=== PATIENT | male | born 1955 | race Caucasian/White ===

== ENCOUNTER 2021-06-30 21:52 | Inpatient (IN) | payer BC ==
[2021-06-29 20:58] VITALS: BP 92/56
[~2021-06-30] VITALS: Ht 172.7 cm; Wt 80.7 kg
[2021-06-30 20:13] VITALS: BP_SYST 142; BP_SYST 143; BP_DIAS 79; BP_DIAS 87
[2021-06-30] MEDS ORDERED: PANT40TA51 PO (22:38)
[2021-06-30] MEDS ORDERED: LACT1CAP56 MT (22:42)
[2021-06-30] MEDS ORDERED: ONDANSETRON HCL 4MG/2ML INJ IV PRN (22:45)
[2021-06-30] MEDS ORDERED: ZOLPIDEM TARTRATE 5MG TABLET PO PRN (22:45)
[2021-06-30] MEDS ORDERED: CLONIDINE 0.1MG TABLET PO PRN (22:45)
[2021-06-30] MEDS ORDERED: ACETAMINOPHEN 325MG TABLET PO PRN (22:45)
[2021-07-01] VITALS: BP 99/61
[2021-07-01] MEDS: MORPHINE SULFATE 2 MG/ML CPJ (NOT FOR IM USE) IV PRN ×2 (00:03→12:38)
[2021-07-01] MEDS: DEXT 5%/0.9% NACL 1,000 ML IV SCH ×2 (00:27→12:28)
[2021-07-01 01:58] LABS: CHLORIDE 109 mEq/L (98-107)
[2021-07-01 02:00] LABS: BASOPHILS % 0.5 % (0.0-2.0); EOSINOPHILS % 0.7 % (0.0-5.0); HEMATOCRIT. 31.4 % (42.0-52.0); HEMOGLOBIN. 10.7 g/dL (14.0-18.0); LYMPHOCYTES % 22.5 % (20.0-50.0); MEAN CORPUSCULAR VOLUME 93.9 fL (80.0-94.0); MEAN PLATELET VOLUME 8.9 fl (7.4-10.4); MONOCYTES % 8.9 % (2.0-8.0); NEUTROPHILS % 67.4 % (40.0-76.0); PLATELET 239 x1000/uL (130-400); RED BLOOD CELL COUNT 3.35 mill/uL (4.7-6.1); RED CELL DISTRIBUTION WIDTH 21.8 % (11.6-14.6)
[2021-07-01 04:00] VITALS: BP 104/68
[2021-07-01 08:00] VITALS: BP 98/55
[2021-07-01 12:00] VITALS: BP 90/52
[2021-07-01 16:00] VITALS: BP 85/58
[2021-07-01] MEDS ORDERED: NALOXONE HCL 0.4MG/ML VIAL IV PRN (18:45)
[2021-07-01 20:00] VITALS: BP 88/54
[2021-07-02] MEDS: DEXT 5%/0.9% NACL 1,000 ML IV SCH ×2 (01:25→13:53)
[2021-07-02 07:23] LABS: BASOPHILS % 0.7 % (0.0-2.0); HEMATOCRIT. 31.1 % (42.0-52.0); HEMOGLOBIN. 10.7 g/dL (14.0-18.0); LYMPHOCYTES % 14.6 % (20.0-50.0); MEAN CORPUSCULAR HEMOGLOBIN 32.4 pg (28.0-32.0); MEAN PLATELET VOLUME 8.8 fl (7.4-10.4); MONOCYTES % 9.4 % (2.0-8.0); NEUTROPHILS % 74.3 % (40.0-76.0); PLATELET 216 x1000/uL (130-400); RED BLOOD CELL COUNT 3.31 mill/uL (4.7-6.1); RED CELL DISTRIBUTION WIDTH 22.4 % (11.6-14.6)
[2021-07-02 07:29] LABS: CHLORIDE 111 mEq/L (98-107)
[2021-07-02 07:46] LABS: INR 1.9; PROTHROMBIN TIME 19.2 sec (9.6-11.0)
[2021-07-02 08:00] VITALS: BP 91/54
[2021-07-02] MEDS: MORPHINE SULFATE 2 MG/ML CPJ (NOT FOR IM USE) IV PRN ×3 (10:14→23:01)
[2021-07-02 12:00] VITALS: BP 89/48
[2021-07-02 13:07] LABS: PLATELET ESTIMATE NORMAL
[2021-07-02 16:00] VITALS: BP 87/54
[2021-07-02 20:00] VITALS: BP 84/54
[2021-07-02] MEDS: ZOLPIDEM TARTRATE 5MG TABLET PO PRN (22:52)
[2021-07-03] VITALS: BP 84/53
[2021-07-03 04:00] VITALS: BP 85/58
[2021-07-03] MEDS: DEXT 5%/0.9% NACL 1,000 ML IV SCH ×2 (05:04→16:56)
[2021-07-03 08:00] VITALS: BP 96/56
[2021-07-03] MEDS: MORPHINE SULFATE 2 MG/ML CPJ (NOT FOR IM USE) IV PRN ×2 (10:01→23:27)
[2021-07-03] MEDS ORDERED: PHYTONADIONE 10MG/ML AMP SUBCUT SCH (10:30)
[2021-07-03 12:00] VITALS: BP 95/61
[2021-07-03 16:00] VITALS: BP 98/56
[2021-07-03 20:00] VITALS: BP 84/47
[2021-07-04] VITALS (9 sets, daily range): BP systolic 87–98; BP diastolic 51–60
[2021-07-04] MEDS: ZOLPIDEM TARTRATE 5MG TABLET PO PRN (01:12)
[2021-07-04] MEDS ORDERED: IOHEXOL-300 50 ML BOTTLE IV ONE (07:46)
[2021-07-04] MEDS ORDERED: LIDOCAINE HCL 1% 30ML VIAL (10MG/ML) ONE (07:46)
[2021-07-04] MEDS ORDERED: PIPERACILLIN/TAZ 3.375G PREMIX 50 ML IV ONE (08:00)
[2021-07-04] MEDS ORDERED: MEPERIDINE HCL/PF 25MG/ML CPJ IV PRN (09:00)
[2021-07-04] MEDS ORDERED: HYDROMORPHONE HCL/PF 2MG/ML CPJ IV PRN (09:00)
[2021-07-04] MEDS ORDERED: LABETALOL 5MG/ML SYR 20 MG/4 ML SYRINGE IV PRN (09:00)
[2021-07-04] MEDS ORDERED: ONDANSETRON HCL 4MG/2ML INJ IV PRN (09:00)
[2021-07-04 11:59] LABS: BASOPHILS % 0.4 % (0.0-2.0); EOSINOPHILS % 0.6 % (0.0-5.0); HEMATOCRIT. 31.2 % (42.0-52.0); HEMOGLOBIN. 10.5 g/dL (14.0-18.0); MEAN CORPUSCULAR HEMOGLOBIN 31.6 pg (28.0-32.0); MONOCYTES % 9.8 % (2.0-8.0); NEUTROPHILS % 74.2 % (40.0-76.0); RED BLOOD CELL COUNT 3.32 mill/uL (4.7-6.1); RED CELL DISTRIBUTION WIDTH 22.9 % (11.6-14.6)
[2021-07-04 12:13] LABS: CHLORIDE 108 mEq/L (98-107)
[2021-07-04 13:08] LABS: PLATELET 183 x1000/uL (130-400)
[2021-07-04] MEDS: MORPHINE SULFATE 2 MG/ML CPJ (NOT FOR IM USE) IV PRN (15:48)
[2021-07-05] VITALS: BP 93/50
[2021-07-05] MEDS: DEXT 5%/0.9% NACL 1,000 ML IV SCH ×2 (01:10→08:45)
[2021-07-05 04:00] VITALS: BP 93/56
[2021-07-05 06:25] LABS: HEMATOCRIT 29.7 % (42.0-52.0); HEMOGLOBIN 10.4 g/dL (14.0-18.0); MEAN CORPUSCULAR HEMOGLOBIN 32.7 pg (28.0-32.0); MEAN CORPUSCULAR VOLUME 93.6 fL (80.0-94.0); RED BLOOD CELL COUNT 3.17 mill/uL (4.7-6.1); RED CELL DISTRIBUTION WIDTH 22.5 % (11.6-14.6)
[2021-07-05 06:35] LABS: CHLORIDE 110 mEq/L (98-107)
[2021-07-05 12:00] VITALS: BP 95/53
[2021-07-05 13:04] VITALS: BP 95/53
[2021-07-05 13:53] LABS: PLATELET 168 x1000/uL (130-400)
[2021-07-05 15:34] VITALS: BP 96/59
== END 2021-07-05 15:52 | disposition hospice, home (50) | DRG 445 ==
LOC: 6EST 21:52
PROVIDERS: ADMIT Internal Medicine; ATTEND Internal Medicine
PROC: 0F2BX0Z Change Drainage Device in Hepatobiliary Duct, External Approach (ICD-10-PCS; principal; 2021-07-04)
PROC: 30233K1 Transfusion of Nonautologous Frozen Plasma into Peripheral Vein, Percutaneous Approach (ICD-10-PCS; 2021-07-04)
DX: K83.1 Obstruction of bile duct (principal); C22.0 Liver cell carcinoma; B19.20 Unspecified viral hepatitis C without hepatic coma; Z20.822 Contact with and (suspected) exposure to COVID-19; D63.8 Anemia in other chronic diseases classified elsewhere; Z85.05 Personal history of malignant neoplasm of liver
CPT/HCPCS: 36415; 47536; 71045; 80048; 80053; 83735; 84100; 85025; 85027; 86850; 86900; 86927; 87426; 93005; C1725; C1769; J1100; J2250; J2270; J2405; J2543; J2704; J3010; J3430; J3490; J7040; J7042; P9017; Q9967